=== PATIENT | female | born 1985 | race Caucasian/White ===

== ENCOUNTER 2017-10-28 17:26 | Emergency (ER) | payer SELFPAY ==
[~2017-10-28 17:26] MED LIST: OXYC-360 PO; PREN0.01; SERT100 PO
[2017-10-28 18:00] VITALS: BP 127/93; PULSE 74; RESP 22; TEMP 98.2; O2SAT 100
[2017-10-28 21:29] LABS: AUTOMATED NEUTROPHIL # 4.7 TH/MM3 (1.8-7.7); BASOPHIL % 0.3 % (0.0-2.0); EOSINOPHIL # 0.3 TH/MM3 (0-0.4); EOSINOPHIL % 2.7 % (0.0-4.0); HEMATOCRIT 44.4 % (35.0-46.0); HEMOGLOBIN 15.4 GM/DL (11.6-15.3); LYMPH % 40.5 % (9.0-44.0); LYMPHOCYTE # 3.8 TH/MM3 (1.0-4.8); MEAN CELL VOLUME 93.6 FL (80.0-100.0); MEAN CORPUSCULAR HEMOGLOBIN 32.4 PG (27.0-34.0); MEAN CORPUSCULAR HGB CONC 34.6 % (32.0-36.0); MEAN PLATELET VOLUME 8.7 FL (7.0-11.0); MONO % 6.2 % (0.0-8.0); MONOCYTE # 0.6 TH/MM3 (0-0.9); NEUT % 50.3 % (16.0-70.0); PLATELET COUNT 325 TH/MM3 (150-450); RED BLOOD COUNT 4.75 MIL/MM3 (4.00-5.30); RED CELL DISTRIBUTION WIDTH 12.6 % (11.6-17.2); WHITE BLOOD COUNT 9.4 TH/MM3 (4.0-11.0)
[2017-10-28 21:39] LABS: BILIRUBIN, URINE NEG (NEG); BLOOD, URINE NEG (NEG); GLUCOSE,URINE NEG (NEG); KETONE, URINE NEG (NEG); NITRITE,URINE NEG (NEG); PH, URINE 5.5 (5.0-8.5); SQUAMOUS EPITHELIAL CELL URINE 1 /hpf (0-5); URINE COLOR LIGHT-YELLOW (YELLW/STRAW); URINE LEUKOCYTE ESTERASE NEG (NEG)
[2017-10-28 21:42] LABS: ALBUMIN 4.7 GM/DL (3.4-5.0); AST (GOT) 29 U/L (15-37); BICARBONATE 30.1 MEQ/L (21.0-32.0); BLOOD UREA NITROGEN 14 MG/DL (7-18); CALCIUM 8.6 MG/DL (8.5-10.1); CHLORIDE 100 MEQ/L (98-107); CREATININE 0.74 MG/DL (0.50-1.00); GLOMERULAR FILTRATION RATE 90 ML/MIN (>89); GLUCOSE,RANDOM 73 MG/DL (74-106); SODIUM (NA) 138 MEQ/L (136-145)
[2017-10-28 21:43] LABS: ALT (GPT) 43 U/L (10-53)
[2017-10-28 21:45] LABS: ALKALINE PHOSPHATASE 68 U/L (45-117); TOTAL BILIRUBIN ADULT 0.3 MG/DL (0.2-1.0); TOTAL PROTEIN 8.4 GM/DL (6.4-8.2)
[2017-10-28 22:14] LABS: PROTHROMBIN TIME - PATIENT 9.8 SEC (9.8-11.6)
--- NOTE | 2017-10-29 12:11 | PD ---
HPI Chief Complaint: Abdominal Pain Time Seen by Provider: 18:00 Travel History International Travel<30 days: No Contact w/Intl Traveler<30days: No Traveled to known affect area: No History of Present Illness HPI 32-year-old female consumes alcohol daily presents emergency department for evaluation left upper quadrant pain. Pain has been left upper quadrant and epigastric 2 days. She's been nauseous L vomiting. States the pain is severe and radiates to her back. Denies any diarrhea. No fever or chills. No other symptoms to report. 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 She has even respirations. Normal heart rate. Abdomen is not distended. She moves all extremities and speaks clearly to me. Data Data Last Documented VS Vital Signs Date Time Temp Pulse Resp B/P (MAP) Pulse Ox O2 Delivery O2 Flow Rate FiO2 10/28/17 18:00 98.2 74 22 127/93 (104) 100 Orders Orders Complete Blood Count With Diff (10/28/17 18:02) Comprehensive Metabolic Panel (10/28/17 18:02) Lipase (10/28/17 18:02) Prothrombin Time / Inr (Pt) (10/28/17 18:02) Act Partial Throm Time (Ptt) (10/28/17 18:02) Urinalysis - C+S If Indicated (10/28/17 18:02) Ed Urine Pregnancytest Poc (10/28/17 18:02) Labs Laboratory Tests Test 10/28/17 19:35 10/28/17 19:45 White Blood Count 9.4 TH/MM3 Red Blood Count 4.75 MIL/MM3 Hemoglobin 15.4 GM/DL Hematocrit 44.4 % Mean Corpuscular Volume 93.6 FL Mean Corpuscular Hemoglobin 32.4 PG Mean Corpuscular Hemoglobin Concent 34.6 % Red Cell Distribution Width 12.6 % Platelet Count 325 TH/MM3 Mean Platelet Volume 8.7 FL Neutrophils (%) (Auto) 50.3 % Lymphocytes (%) (Auto) 40.5 % Monocytes (%) (Auto) 6.2 % Eosinophils (%) (Auto) 2.7 % Basophils (%) (Auto) 0.3 % Neutrophils # (Auto) 4.7 TH/MM3 Lymphocytes # (Auto) 3.8 TH/MM3 Monocytes # (Auto) 0.6 TH/MM3 Eosinophils # (Auto) 0.3 TH/MM3 Basophils # (Auto) 0.0 TH/MM3 CBC Comment DIFF FINAL Differential Comment Prothrombin Time 9.8 SEC Prothromb Time International Ratio 1.0 RATIO Activated Partial Thromboplast Time 29.9 SEC Blood Urea Nitrogen 14 MG/DL Creatinine 0.74 MG/DL Random Glucose 73 MG/DL Total Protein 8.4 GM/DL Albumin 4.7 GM/DL Calcium Level 8.6 MG/DL Alkaline Phosphatase 68 U/L Aspartate Amino Transf (AST/SGOT) 29 U/L Alanine Aminotransferase (ALT/SGPT) 43 U/L Total Bilirubin 0.3 MG/DL Sodium Level 138 MEQ/L Potassium Level 3.5 MEQ/L Chloride Level 100 MEQ/L Carbon Dioxide Level 30.1 MEQ/L Anion Gap 8 MEQ/L Estimat Glomerular Filtration Rate 90 ML/MIN Lipase 68 U/L Urine Color LIGHT-YELLOW Urine Turbidity CLEAR Urine pH 5.5 Urine Specific [place] 1.013 Urine Protein NEG mg/dL Urine Glucose (UA) NEG mg/dL Urine Ketones NEG mg/dL Urine Occult Blood NEG Urine Nitrite NEG Urine Bilirubin NEG Urine Urobilinogen LESS THAN 2.0 MG/DL Urine Leukocyte Esterase NEG Urine Squamous Epithelial Cells 1 /hpf Microscopic Urinalysis Comment CULT NOT INDICATED MDM Medical Decision Making Medical Screen Exam Complete: Yes Emergency Medical Condition: Yes Medical Record Reviewed: Yes Differential Diagnosis Pancreatitis versus cholecystitis versus gastritis versus muscle spasm Narrative Course 32-year-old female presents emergency department for evaluation abdominal pain. Workup is initiated in triage. Prior to the placement, patient chooses to leave AMA: The risks of leaving against medical advice without further evaluation treatment were discussed with the patient. These risks include cardiac dysfunction, cardiac dysrhythmia, possible heart attack, possible stroke or . The patient indicated understanding of these risks and appeared to have the capacity to make this decision. Diagnosis Primary Impression: Abdominal pain Patient Instructions: General Instructions Departure Forms: Tests/Procedures Disposition: 07 AGAINST MEDICAL ADVICE Condition: Stable MadrigalBarbara becerril AKUA Oct 29, 2017 12:11
== END 2017-10-29 00:25 | disposition left against medical advice (07) ==
LOC: NED 17:26
DX: R10.12 Left upper quadrant pain (principal); Z53.21 Procedure and treatment not carried out due to patient leaving prior to being seen by health care provider; R11.0 Nausea; Z72.0 Tobacco use
CPT/HCPCS: 80053; 81001; 83690; 84703; 85025; 85610; 85730; 99283

== ENCOUNTER 2017-11-09 16:26 | Emergency (ER) | payer MEDICAID ==
[~2017-11-09] VITALS: Ht 162.6 cm; Wt 70.5 kg
[2017-11-09 16:30] VITALS: BP 125/73; PULSE 90; RESP 16; TEMP 97.7; O2SAT 100
[2017-11-09 17:32] LABS: AUTOMATED NEUTROPHIL # 6.6 TH/MM3 (1.8-7.7); BASOPHIL % 0.2 % (0.0-2.0); EOSINOPHIL # 0.2 TH/MM3 (0-0.4); EOSINOPHIL % 1.5 % (0.0-4.0); HEMATOCRIT 46.3 % (35.0-46.0); HEMOGLOBIN 16.1 GM/DL (11.6-15.3); LYMPH % 31.4 % (9.0-44.0); LYMPHOCYTE # 3.4 TH/MM3 (1.0-4.8); MEAN CELL VOLUME 94.2 FL (80.0-100.0); MEAN CORPUSCULAR HEMOGLOBIN 32.8 PG (27.0-34.0); MEAN CORPUSCULAR HGB CONC 34.8 % (32.0-36.0); MEAN PLATELET VOLUME 8.8 FL (7.0-11.0); MONO % 5.5 % (0.0-8.0); MONOCYTE # 0.6 TH/MM3 (0-0.9); NEUT % 61.4 % (16.0-70.0); PLATELET COUNT 302 TH/MM3 (150-450); RED BLOOD COUNT 4.92 MIL/MM3 (4.00-5.30); RED CELL DISTRIBUTION WIDTH 12.9 % (11.6-17.2); WHITE BLOOD COUNT 10.8 TH/MM3 (4.0-11.0)
[2017-11-09 17:37] LABS: BACTERIA, URINE RARE /hpf; BILIRUBIN, URINE NEG (NEG); BLOOD, URINE TRACE (NEG); GLUCOSE,URINE NEG (NEG); KETONE, URINE NEG (NEG); MUCUS URINE FEW /lpf (OCC); NITRITE,URINE NEG (NEG); SQUAMOUS EPITHELIAL CELL URINE 34 /hpf (0-5); URINE COLOR YELLOW (YELLW/STRAW); URINE LEUKOCYTE ESTERASE LARGE (NEG); WHITE BLOOD CELL CLUMPS MANY
[2017-11-09 17:46] LABS: ALBUMIN 4.8 GM/DL (3.4-5.0); ALT (GPT) 40 U/L (10-53); AST (GOT) 25 U/L (15-37); BLOOD UREA NITROGEN 12 MG/DL (7-18); CALCIUM 9.2 MG/DL (8.5-10.1); CHLORIDE 101 MEQ/L (98-107); CREATININE 0.89 MG/DL (0.50-1.00); GLOMERULAR FILTRATION RATE 73 ML/MIN (>89); GLUCOSE,RANDOM 79 MG/DL (74-106); SODIUM (NA) 138 MEQ/L (136-145)
[2017-11-09 17:50] LABS: ALKALINE PHOSPHATASE 63 U/L (45-117); TOTAL BILIRUBIN ADULT 0.3 MG/DL (0.2-1.0); TOTAL PROTEIN 8.7 GM/DL (6.4-8.2)
[2017-11-09] MEDS ORDERED: XANA1TAB2 PO (18:27)
[2017-11-09] MEDS ORDERED: BUPR4MIS SL (18:27)
[2017-11-09] MEDS ORDERED: PAXI10TA8 PO (18:27)
[2017-11-09] MEDS ORDERED: LAMO100 PO (18:27)
[2017-11-09] MEDS ORDERED: CIPR-9 PO (18:58)
--- NOTE | 2017-11-09 18:58 | PD ---
HPI Chief Complaint: Abdominal Pain Time Seen by Provider: 18:34 Travel History International Travel<30 days: No Contact w/Intl Traveler<30days: No Traveled to known affect area: No History of Present Illness HPI The patient is a 32-year-old female who presents emergency department for right flank pain, mild abdominal discomfort, and generalized malaise. The patient's symptoms been ongoing for several days, she was seen at urgent care earlier today who thought she might have pancreatitis and referred her to the emergency department. She did drink alcohol heavily several nights ago. She denies any nausea, vomiting, or diarrhea. She denies any dysuria, frequency, urgency, vaginal discharge, or vaginal bleeding. Drums are moderate. She denies any associated fever. PFSH Past Medical History Anxiety: Yes Depression: Yes Diminished Hearing: No Psychiatric: Yes Tetanus Vaccination: > 5 Years Influenza Vaccination: No ?: Not LMP: 10/27/17 : 4 Para: 2 Past Surgical History Section: Yes (x 2) Gynecologic Surgery: Yes (c section) Social History Alcohol Use: Yes (daily) Tobacco Use: Yes (10 cigarrette per day) Substance Use: Yes ([facility]) Allergies-Medications (Allergen,Severity, Reaction): Coded Allergies: amoxicillin (Verified Allergy, Severe, Hives, 11/09/17) Reported Meds & Prescriptions Reported Meds & Active Scripts Active Reported Suboxone Sublingual Film (Buprenorphine-Naloxone Sublingual Film) 4-1 Mg Film 1 Film SL DAILY Unique ID number required: Xanax (Alprazolam) 1 Mg Tab 1 Mg PO BID PRN Lamictal (Lamotrigine) 100 Mg Tab 100 Mg PO BID Paxil (Paroxetine HCl) 10 Mg Tab 10 Mg PO DAILY Review of Systems Except as stated in HPI: all other systems reviewed are Neg General / Constitutional: No: Fever Cardiovascular: No: Chest Pain or Discomfort Respiratory: No: Shortness of Breath Gastrointestinal: Positive: Abdominal Pain, No: Nausea, Vomiting, Diarrhea Genitourinary: Positive: Flank Pain, No: Dysuria Skin: No Rash Physical Exam Narrative GENERAL: Awake, alert, pleasant 32-year-old female who appears her stated age and is in no acute respiratory distress. SKIN: Focused skin assessment warm/dry. HEAD: Atraumatic. Normocephalic. EYES: No injection or drainage. ENT: No nasal bleeding or discharge. Mucous membranes pink and moist. NECK: Trachea midline. No JVD. CARDIOVASCULAR: Regular rate and rhythm. No murmur appreciated. RESPIRATORY: No accessory muscle use. Clear to auscultation. Breath sounds equal bilaterally. GASTROINTESTINAL: Abdomen soft, minimal suprapubic tenderness. Well-healed scar above the umbilicus. Back: Right CVA tenderness. MUSCULOSKELETAL: No obvious deformities. No clubbing. No cyanosis. No edema. NEUROLOGICAL: Awake and alert. No obvious cranial nerve deficits. Motor grossly within normal limits. Normal speech. PSYCHIATRIC: Appropriate mood and affect; insight and judgment normal. Data Data Last Documented VS Vital Signs Date Time Temp Pulse Resp B/P (MAP) Pulse Ox O2 Delivery O2 Flow Rate FiO2 11/09/17 18:28 16 11/09/17 16:30 97.7 90 125/73 (90) 100 Orders Orders Complete Blood Count With Diff (11/09/17 16:35) Comprehensive Metabolic Panel (11/09/17 16:35) Urinalysis - C+S If Indicated (11/09/17 16:35) Ed Urine Pregnancytest Poc (11/09/17 16:35) Lipase (11/09/17 16:35) Urine Culture (11/09/17 16:40) Ketorolac Inj (Toradol Inj) (11/09/17 18:45) Ondansetron Inj (Zofran Inj) (11/09/17 18:45) Sodium Chlor 0.9% 1000 Ml Inj (Ns 1000 M (11/09/17 18:45) Ciprofloxacin 400 Mg Premix (Cipro 400 M (11/09/17 18:45) Labs Laboratory Tests Test 11/09/17 16:40 White Blood Count 10.8 TH/MM3 Red Blood Count 4.92 MIL/MM3 Hemoglobin 16.1 GM/DL Hematocrit 46.3 % Mean Corpuscular Volume 94.2 FL Mean Corpuscular Hemoglobin 32.8 PG Mean Corpuscular Hemoglobin Concent 34.8 % Red Cell Distribution Width 12.9 % Platelet Count 302 TH/MM3 Mean Platelet Volume 8.8 FL Neutrophils (%) (Auto) 61.4 % Lymphocytes (%) (Auto) 31.4 % Monocytes (%) (Auto) 5.5 % Eosinophils (%) (Auto) 1.5 % Basophils (%) (Auto) 0.2 % Neutrophils # (Auto) 6.6 TH/MM3 Lymphocytes # (Auto) 3.4 TH/MM3 Monocytes # (Auto) 0.6 TH/MM3 Eosinophils # (Auto) 0.2 TH/MM3 Basophils # (Auto) 0.0 TH/MM3 CBC Comment DIFF FINAL Differential Comment Urine Color YELLOW Urine Turbidity CLOUDY Urine pH 7.0 Urine Specific [place] 1.016 Urine Protein 30 mg/dL Urine Glucose (UA) NEG mg/dL Urine Ketones NEG mg/dL Urine Occult Blood TRACE Urine Nitrite NEG Urine Bilirubin NEG Urine Urobilinogen LESS THAN 2.0 MG/DL Urine Leukocyte Esterase LARGE Urine RBC 20 /hpf Urine WBC 103 /hpf Urine WBC Clumps MANY Urine Squamous Epithelial Cells 34 /hpf Urine Bacteria RARE /hpf Urine Mucus FEW /lpf Microscopic Urinalysis Comment CULTURE INDICATED Blood Urea Nitrogen 12 MG/DL Creatinine 0.89 MG/DL Random Glucose 79 MG/DL Total Protein 8.7 GM/DL Albumin 4.8 GM/DL Calcium Level 9.2 MG/DL Alkaline Phosphatase 63 U/L Aspartate Amino Transf (AST/SGOT) 25 U/L Alanine Aminotransferase (ALT/SGPT) 40 U/L Total Bilirubin 0.3 MG/DL Sodium Level 138 MEQ/L Potassium Level 4.1 MEQ/L Chloride Level 101 MEQ/L Carbon Dioxide Level 30.0 MEQ/L Anion Gap 7 MEQ/L Estimat Glomerular Filtration Rate 73 ML/MIN Lipase 86 U/L [facility] Medical Decision Making Medical Screen Exam Complete: Yes Emergency Medical Condition: Yes Medical Record Reviewed: Yes Interpretation(s) Laboratory Tests Test 11/09/17 16:40 White Blood Count 10.8 TH/MM3 Red Blood Count 4.92 MIL/MM3 Hemoglobin 16.1 GM/DL Hematocrit 46.3 % Mean Corpuscular Volume 94.2 FL Mean Corpuscular Hemoglobin 32.8 PG Mean Corpuscular Hemoglobin Concent 34.8 % Red Cell Distribution Width 12.9 % Platelet Count 302 TH/MM3 Mean Platelet Volume 8.8 FL Neutrophils (%) (Auto) 61.4 % Lymphocytes (%) (Auto) 31.4 % Monocytes (%) (Auto) 5.5 % Eosinophils (%) (Auto) 1.5 % Basophils (%) (Auto) 0.2 % Neutrophils # (Auto) 6.6 TH/MM3 Lymphocytes # (Auto) 3.4 TH/MM3 Monocytes # (Auto) 0.6 TH/MM3 Eosinophils # (Auto) 0.2 TH/MM3 Basophils # (Auto) 0.0 TH/MM3 CBC Comment DIFF FINAL Differential Comment Urine Color YELLOW Urine Turbidity CLOUDY Urine pH 7.0 Urine Specific [place] 1.016 Urine Protein 30 mg/dL Urine Glucose (UA) NEG mg/dL Urine Ketones NEG mg/dL Urine Occult Blood TRACE Urine Nitrite NEG Urine Bilirubin NEG Urine Urobilinogen LESS THAN 2.0 MG/DL Urine Leukocyte Esterase LARGE Urine RBC 20 /hpf Urine WBC 103 /hpf Urine WBC Clumps MANY Urine Squamous Epithelial Cells 34 /hpf Urine Bacteria RARE /hpf Urine Mucus FEW /lpf Microscopic Urinalysis Comment CULTURE INDICATED Blood Urea Nitrogen 12 MG/DL Creatinine 0.89 MG/DL Random Glucose 79 MG/DL Total Protein 8.7 GM/DL Albumin 4.8 GM/DL Calcium Level 9.2 MG/DL Alkaline Phosphatase 63 U/L Aspartate Amino Transf (AST/SGOT) 25 U/L Alanine Aminotransferase (ALT/SGPT) 40 U/L Total Bilirubin 0.3 MG/DL Sodium Level 138 MEQ/L Potassium Level 4.1 MEQ/L Chloride Level 101 MEQ/L Carbon Dioxide Level 30.0 MEQ/L Anion Gap 7 MEQ/L Estimat Glomerular Filtration Rate 73 ML/MIN Lipase 86 U/L Differential Diagnosis Differential diagnosis includes pyelonephritis, nephrolithiasis, hydronephrosis , , ectopic , pancreatitis, gastritis, peptic ulcer disease. Narrative Course IV was established, labs are drawn and sent, and the patient was placed on cardiac telemetry monitoring and continuous pulse oximetry monitoring. The patient was administered Toradol, Zofran, and IV fluids. Bedside UA test was negative. UA was positive for pyelonephritis. CBC and CMP are unremarkable. Lipase is normal. UA is positive for pyelonephritis infection. The patient is allergic to amoxicillin, was administered Cipro 400 mg intravenously. She'll be discharged home on Cipro twice a day for 7 days, advised to follow-up with a primary physician. Diagnosis Primary Impression: Pyelonephritis Patient Instructions: General Instructions Additional Instructions: Please provide the patient a copy of her labs at discharge. Medications as directed. Follow-up with a primary physician. Return if symptoms worsen or progress. Med/Other Pt SpecificInfo: Prescription(s) given Scripts Ciprofloxacin (Cipro) 500 Mg Tab 500 MG PO BID for Infection for 7 Days, #14 TAB 0 Refills Prov: Alfred Maria MD 11/09/17 Disposition: 01 DISCHARGE HOME Condition: Stable Alfred Maria MD Nov 09, 2017 18:58
[2017-11-09] MEDS: ONDANSETRON HCL 4 MG/2 ML VIAL IV PUSH ONE (19:09)
[2017-11-09] MEDS: KETOROLAC TROMETHAMINE 30 MG/ML (IVP) VIAL IV PUSH ONE (19:10)
[2017-11-09] MEDS: CIPROFLOXACIN 400 MG PREMIX 200 ML IV ONE (19:10)
[2017-11-09] MEDS: SODIUM CHLOR 0.9% 1000 ML INJ 1,000 ML IV ONE (19:11)
== END 2017-11-09 21:55 | disposition home or self-care (01) ==
LOC: NEPE 16:26
DX: N12 Tubulo-interstitial nephritis, not specified as acute or chronic (principal); F41.9 Anxiety disorder, unspecified; F32.9 Major depressive disorder, single episode, unspecified; F17.210 Nicotine dependence, cigarettes, uncomplicated; F12.90 Cannabis use, unspecified, uncomplicated
CPT/HCPCS: 80053; 81001; 83690; 84703; 85025; 87086; 96361; 96365; 96375; 99284; J0744; J1885; J2405; J7030